=== PATIENT | male | born 1990 | race Caucasian/White ===

== ENCOUNTER 2017-07-28 16:32 | Emergency (ER) | payer OTHER ==
[~2017-07-28] VITALS: Ht 182.9 cm; Wt 90.0 kg
[~2017-07-28 16:32] MED LIST: CIPR500T4 PO
[2017-07-28 16:36] VITALS: BP 137/95; PULSE 99; RESP 17; TEMP 98.4; O2SAT 100
[2017-07-28] MEDS ORDERED: HYDROmorphone HCL PF 1 MG/ML VIAL IM ONE (17:00)
--- NOTE | 2017-07-28 17:06 | PD ---
HPI Chief Complaint: Fall Time Seen by Provider: 16:54 Travel History International Travel<30 days: No Contact w/Intl Traveler<30days: No Traveled to known affect area: No History of Present Illness HPI 27-year-old male here for evaluation of head injury after a mechanical slip and fall while in the shower after working out at the gym today at around 3:30 PM. Patient is unsure whether he lost consciousness or not. He sustained a laceration to his right temporal scalp/right forehead. He now complains of severe head pain, neck pain, and mild right wrist pain. He denies any other injuries. He is feeling lightheaded and somewhat confused, and has some blurry vision in his right eye. No paresthesias or motor deficits. He believes his last tetanus was 3 years ago. ON LICENSE OF [facility] Past Medical History Diminished Hearing: No Hepatitis: Yes (c) Social History Alcohol Use: No Tobacco Use: Yes Substance Use: No Allergies-Medications (Allergen,Severity, Reaction): Coded Allergies: amoxicillin (Unverified Allergy, Unknown, 06/07/17) Reported Meds & Prescriptions Reported Meds & Active Scripts Active Cipro (Ciprofloxacin HCl) 500 Mg Tab 500 Mg PO BID Review of Systems Except as stated in HPI: all other systems reviewed are Neg Physical Exam Narrative GENERAL: Well-developed, well-nourished, awake, alert, GCS 15, no apparent distress. SKIN: Focused skin assessment warm/dry. Laceration over the right forehead extending to right temporal region that is approximately 6 cm in length, moderate depth, mild venous oozing, no visible contaminants. HEAD: Skin exam as above. No scalp hematoma. Normocephalic. EYES: Pupils equal and round. No scleral icterus. No injection or drainage. ENT: Mucous membranes pink and moist. NECK: Trachea midline. No JVD. Moderate midline cervical spine tenderness without step-off. CARDIOVASCULAR: Regular rate and rhythm. Distal pulses brisk and equal bilaterally. RESPIRATORY: No accessory muscle use. Clear to auscultation. Breath sounds equal bilaterally. GASTROINTESTINAL: Abdomen soft, non-tender, nondistended. MUSCULOSKELETAL: No obvious deformities. No clubbing. No cyanosis. No edema. Right wrist without deformity, with normal range of motion, with mild tenderness. NEUROLOGICAL: Awake and alert. No obvious cranial nerve deficits. Motor grossly within normal limits. Normal speech. PSYCHIATRIC: Appropriate mood and affect; insight and judgment normal. Data Data Last Documented VS Vital Signs Date Time Temp Pulse Resp B/P (MAP) Pulse Ox O2 Delivery O2 Flow Rate FiO2 07/28/17 16:36 98.4 99 17 137/95 (109) [address] Brain W/O Iv Contrast(Rout) (07/28/17 ) Ct Cerv Spine W/O Contrast (07/28/17 ) Wrist, Complete ([id number]) (07/28/17 ) Hydromorphone Pf Inj (Dilaudid Pf Inj) (07/28/17 17:00) Lidocai-Epi 2%-1:100,000 Inj (Xylocaine- (07/28/17 18:00) Lidocai-Epi 2%-1:100,000 Inj (Xylocaine- (07/28/17 18:00) MDM Medical Decision Making Medical Screen Exam Complete: Yes Emergency Medical Condition: Yes Differential Diagnosis Head injury, concussion, intracranial hemorrhage, scalp laceration, cervical spine injury, wrist fracture versus sprain Narrative Course Vital signs reviewed. CT head: Negative noncontrast head CT. CT cervical spine: Negative trauma CT. Right wrist x-ray: Negative trauma exam. Right forehead laceration repaired by me. See procedure note. Patient was made aware of all findings. He is resting comfortably. Suture removal in 5 days. He was informed on when to return to the emergency Department sooner. He verbalizes understanding and agreement with plan. Procedures Procedure Narrative LACERATION LOCATION: Right forehead LENGTH: 6 cm NUMBER OF STITCHES/ANSELMO: 12 5-0 simple interrupted prolene sutures. REPAIR: The area of the laceration was prepped with Betadine and sterilely draped. The laceration was infiltrated with Receive cc of 2% lidocaine with epinephrine. The wound was copiously irrigated and explored without evidence of foreign body, tendon injury or neurovascular injury. The wound was closed using 12 5-0 simple interrupted prolene sutures. This was a single layer repair. A sterile dressing was applied. The patient was advised to keep the dressing clean and dry. Patient tolerated the procedure well. Diagnosis Primary Impression: Forehead laceration Qualified Codes: S01.81XA - Laceration without foreign body of other part of head, initial encounter Additional Impressions: Fall Qualified Codes: W19.XXXA - Unspecified fall, initial encounter Head injury Qualified Codes: S09.90XA - Unspecified injury of head, initial encounter Referrals: [facility] Additional Instructions: Have sutures removed in 5 days. Return to the Emergency Department sooner for worsening symptoms or any other concerns as discussed. Disposition: 01 DISCHARGE HOME Condition: Stable Jose Angel Meza MD Jul 28, 2017 17:06
--- NOTE | 2017-07-28 17:33 | RADRPT ---
EXAM DATE/TIME: 07/28/2017 17:12 [facility] COMPARISON: No previous studies available for comparison. INDICATIONS : Right anterior wrist pain after slipping coming out of shower. MEDICAL HISTORY : None. SURGICAL HISTORY : None. ENCOUNTER: Initial ACUITY: 1 day PAIN SCORE: 5/10 LOCATION: Right wrist FINDINGS: Three view examination of the right wrist demonstrates no soft tissue swelling, dislocation, or fract ure. The carpal bones are in normal alignment. The joint spaces are maintained. Bony mineralizatio n is normal. CONCLUSION: Negative trauma exam. Huey Torres MD on July 28, 2017 at 17:31 Board Certified Radiologist. This report was verified electronically.
[2017-07-28] MEDS ORDERED: LIDOCAINE 1%/EPINEPHrine 1:100,000 SOLN 20 ML VIAL INFIL ONE (17:45)
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
[2017-07-28] MEDS ORDERED: LIDOCAINE 2%/EPINEPHrine 1:100,000 30ML MDV INFIL ONE (18:00)
[2017-07-28] MEDS ORDERED: LIDOCAINE 2%/EPINEPHrine 1:100,000 20ML MDV INFIL ONE (18:00)
[2017-07-28] MEDS ORDERED: oxyCODONE/ACETAMINOPHEN 5 MG/325 MG TAB PO ONE (18:45)
== END 2017-07-28 19:15 | disposition home or self-care (01) ==
LOC: NEPD 16:32
DX: S01.81XA Laceration without foreign body of other part of head, initial encounter (principal); S09.90XA Unspecified injury of head, initial encounter; M25.531 Pain in right wrist; M54.2 Cervicalgia; H53.8 Other visual disturbances; W18.2XXA Fall in (into) shower or empty bathtub, initial encounter; Y93.E1 Activity, personal bathing and showering; Y92.39 Other specified sports and athletic area as the place of occurrence of the external cause; Z72.0 Tobacco use
CPT/HCPCS: 12014; 70450; 72125; 73110; 96372; 99285; J1170

== ENCOUNTER 2017-08-02 17:39 | Emergency (ER) | payer SELFPAY ==
[~2017-08-02] VITALS: Ht 180.3 cm; Wt 87.0 kg
[2017-08-02 17:41] VITALS: BP 158/81; PULSE 90; RESP 12; TEMP 98.8; O2SAT 96
--- NOTE | 2017-08-02 17:46 | PD ---
Physical Exam Date Seen by Provider: Aug 02, 2017 Time Seen by Provider: 17:45 Narrative 27 yo male here for evaluation of suture removal. Had an injury to head about a week ago. Sutures done here. Here to get them removed. Since he has been having pain to head and complains of headache 05/02. Vitals are stable in triage. Awaiting bed placement. Data Data Last Documented VS Vital Signs Date Time Temp Pulse Resp B/P (MAP) Pulse Ox O2 Delivery O2 Flow Rate FiO2 08/02/17 17:41 98.8 90 12 158/81 (106) 96 Room Air [facility] Medical Record Reviewed: Yes Supervised Visit with MURTAZA: Miguel Varela Aug 02, 2017 17:46
[2017-08-02] MEDS ORDERED: ROBA750T PO (20:04)
[2017-08-02] MEDS ORDERED: DICL75TA PO (20:04)
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
== END 2017-08-02 20:20 | disposition home or self-care (01) ==
LOC: NEPK 17:39
DX: S01.81XD Laceration without foreign body of other part of head, subsequent encounter (principal); W01.0XXD Fall on same level from slipping, tripping and stumbling without subsequent striking against object, subsequent encounter; R11.2 Nausea with vomiting, unspecified; M54.41 Lumbago with sciatica, right side; G89.29 Other chronic pain; Z48.02 Encounter for removal of sutures
CPT/HCPCS: 99284

== ENCOUNTER 2018-03-07 00:07 | Emergency (ER) | payer SELFPAY ==
[~2018-03-07] VITALS: Ht 180.3 cm; Wt 75.0 kg
[~2018-03-07 00:07] MED LIST changes: +DICL75TA PO; +ROBA750T PO
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
[2018-03-07 00:26] VITALS: BP 147/99; PULSE 92; RESP 18; TEMP 98.2; O2SAT 97
[2018-03-07 01:00] LABS: AUTOMATED NEUTROPHIL # 6.3 TH/MM3 (1.8-7.7); BASOPHIL # 0.1 TH/MM3 (0-0.2); BASOPHIL % 0.7 % (0.0-2.0); EOSINOPHIL # 0.1 TH/MM3 (0-0.4); EOSINOPHIL % 0.8 % (0.0-4.0); HEMATOCRIT 44.6 % (39.0-51.0); HEMOGLOBIN 15.4 GM/DL (13.0-17.0); LYMPH % 28.1 % (9.0-44.0); LYMPHOCYTE # 2.8 TH/MM3 (1.0-4.8); MEAN CELL VOLUME 93.3 FL (80.0-100.0); MEAN CORPUSCULAR HEMOGLOBIN 32.1 PG (27.0-34.0); MEAN CORPUSCULAR HGB CONC 34.4 % (32.0-36.0); MEAN PLATELET VOLUME 7.1 FL (7.0-11.0); MONO % 8.4 % (0.0-8.0); MONOCYTE # 0.9 TH/MM3 (0-0.9); PLATELET COUNT 253 TH/MM3 (150-450); RED BLOOD COUNT 4.78 MIL/MM3 (4.50-5.90); RED CELL DISTRIBUTION WIDTH 13.1 % (11.6-17.2); WHITE BLOOD COUNT 10.1 TH/MM3 (4.0-11.0)
[2018-03-07 01:16] LABS: BICARBONATE 32.3 MEQ/L (21.0-32.0); BLOOD UREA NITROGEN 25 MG/DL (7-18); CALCIUM 9.1 MG/DL (8.5-10.1); CHLORIDE 101 MEQ/L (98-107); CREATININE 1.25 MG/DL (0.60-1.30); GLOMERULAR FILTRATION RATE 68 ML/MIN (>89); GLUCOSE,RANDOM 69 MG/DL (74-106); SODIUM (NA) 139 MEQ/L (136-145)
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
[2018-03-07] MEDS ORDERED: DICL75TA PO (02:05)
[2018-03-07] MEDS ORDERED: CEPH-460 PO (02:06)
[2018-03-07] MEDS ORDERED: KETOROLAC TROMETHAMINE 30 MG/ML (IVP) VIAL IV PUSH ONE (02:15)
== END 2018-03-07 02:43 | disposition home or self-care (01) ==
LOC: NEPD 00:07
DX: S61.412A Laceration without foreign body of left hand, initial encounter (principal); X99.8XXA Assault by other sharp object, initial encounter; Z72.0 Tobacco use
CPT/HCPCS: 12002; 73130; 80048; 80307; 85025; 96365; 96375; 99284; J0690; J1885; L3808

== ENCOUNTER → 2018-03-13 | Day surgery (SDC) | payer SELFPAY ==
[~2018-03-13] VITALS: Ht 180.3 cm; Wt 75.0 kg
[~2018-03-13] MED LIST changes: +ACETAMINOPHEN/HYDROcodone 325 MG/5 MG TAB ONE; +BUPIVACAINE/EPINEPHRINE 0.75% PF 30 ML VIAL ONE; +CEPH-460 PO; +CHLORHEXIDINE GLUCONATE 2 % 1 PACK (2 CLOTHS) TOPICAL PRN; -CIPR500T4 PO; +CIPROFLOXACIN/DEXT 400 MG/200 ML IV SCH; +DEXAMETHASONE SOD PHOS 4 MG/ML VIAL ONE; +HYDROmorphone HCL PF 2 MG/ML VIAL ONE; +LACTATED RINGER'S 1000 ML IV PRN; +METOPROLOL TARTRATE 25 MG TAB PO PRN; +MORPHINE SULFATE 8 MG/ML INJ ONE; +MUPIROCIN 2% OINT 22 GM TUBE ONE; +NALO1SPR NASAL; +POVIDONE IODINE 5% (ANTISEPSIS KIT) 4 APPLICATIONS EACH NARE PRN; +PROMETHAZINE INJ 25 MG/ML VIAL ONE; -ROBA750T PO; +SODIUM CHLORID 0.9% 500 ML IV PRN
[2018-03-13] MEDS: FAMOTIDINE 20 MG/2 ML VIAL ONE ×2 (11:43→13:43)
[2018-03-13] MEDS: MIDAZOLAM HCL 2 MG/2 ML VIAL ONE ×2 (11:44→13:44)
[2018-03-13 16:55] VITALS: PULSE 114
[2018-03-13 18:15] VITALS: BP 143/76; PULSE 86; RESP 16; TEMP 98.2; O2SAT 100
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
== END | disposition home or self-care (01) ==
LOC: PHSDC 10:44
PROVIDERS: ATTEND Student in an Organized Health Care Education/Training Program
DX: S61.012A Laceration without foreign body of left thumb without damage to nail, initial encounter (principal); S66.022A Laceration of long flexor muscle, fascia and tendon of left thumb at wrist and hand level, initial encounter; S64.32XA Injury of digital nerve of left thumb, initial encounter; X99.9XXA Assault by unspecified sharp object, initial encounter; M54.9 Dorsalgia, unspecified; G89.29 Other chronic pain; B19.20 Unspecified viral hepatitis C without hepatic coma
CPT/HCPCS: 01810; 26350; 64910; C9352; J0744; J1100; J1170; J2250; J2270; J2550; J3010; J7120

== ENCOUNTER 2018-03-19 23:00 | Emergency (ER) | payer SELFPAY ==
[~2018-03-19] VITALS: Ht 175.3 cm; Wt 72.7 kg
[~2018-03-19 23:00] MED LIST changes: -ACETAMINOPHEN/HYDROcodone 325 MG/5 MG TAB ONE; -BUPIVACAINE/EPINEPHRINE 0.75% PF 30 ML VIAL ONE; -CHLORHEXIDINE GLUCONATE 2 % 1 PACK (2 CLOTHS) TOPICAL PRN; -CIPROFLOXACIN/DEXT 400 MG/200 ML IV SCH; -DEXAMETHASONE SOD PHOS 4 MG/ML VIAL ONE; -HYDROmorphone HCL PF 2 MG/ML VIAL ONE; -LACTATED RINGER'S 1000 ML IV PRN; -METOPROLOL TARTRATE 25 MG TAB PO PRN; -MORPHINE SULFATE 8 MG/ML INJ ONE; -MUPIROCIN 2% OINT 22 GM TUBE ONE; -NALO1SPR NASAL; -POVIDONE IODINE 5% (ANTISEPSIS KIT) 4 APPLICATIONS EACH NARE PRN; -PROMETHAZINE INJ 25 MG/ML VIAL ONE; -SODIUM CHLORID 0.9% 500 ML IV PRN
[2018-03-19 23:05] VITALS: BP 118/87; PULSE 87; RESP 18; TEMP 98.7; O2SAT 97
[2018-03-19] MEDS ORDERED: SODIUM CHLOR 0.9% 1000 ML INJ 1,000 ML IV ONE (23:30)
[2018-03-19 23:49] LABS: AUTOMATED NEUTROPHIL # 6.9 TH/MM3 (1.8-7.7); BASOPHIL % 0.4 % (0.0-2.0); HEMATOCRIT 36.8 % (39.0-51.0); HEMOGLOBIN 13.1 GM/DL (13.0-17.0); LYMPH % 18.3 % (9.0-44.0); LYMPHOCYTE # 1.7 TH/MM3 (1.0-4.8); MEAN CELL VOLUME 92.2 FL (80.0-100.0); MEAN CORPUSCULAR HEMOGLOBIN 32.8 PG (27.0-34.0); MEAN CORPUSCULAR HGB CONC 35.5 % (32.0-36.0); MEAN PLATELET VOLUME 7.2 FL (7.0-11.0); MONO % 8.3 % (0.0-8.0); MONOCYTE # 0.8 TH/MM3 (0-0.9); PLATELET COUNT 207 TH/MM3 (150-450); RED CELL DISTRIBUTION WIDTH 12.9 % (11.6-17.2); WHITE BLOOD COUNT 9.4 TH/MM3 (4.0-11.0)
[2018-03-19 23:51] LABS: INTERNATIONAL NORMALIZED RATIO 1.4 RATIO
[2018-03-19 23:53] LABS: ACETAMINOPHEN 3.5 MCG/ML (10.0-30.0); ALBUMIN 3.8 GM/DL (3.4-5.0); ALT (GPT) 70 U/L (12-78); AST (GOT) 61 U/L (15-37); BLOOD UREA NITROGEN 27 MG/DL (7-18); CHLORIDE 101 MEQ/L (98-107); CREATININE 1.11 MG/DL (0.60-1.30); GLOMERULAR FILTRATION RATE 78 ML/MIN (>89); GLUCOSE,RANDOM 121 MG/DL (74-106); MAGNESIUM 2.2 MG/DL (1.5-2.5); SODIUM (NA) 139 MEQ/L (136-145)
[2018-03-19 23:56] LABS: ALKALINE PHOSPHATASE 68 U/L (45-117); TOTAL BILIRUBIN ADULT 0.4 MG/DL (0.2-1.0); TOTAL PROTEIN 7.2 GM/DL (6.4-8.2)
[2018-03-20] MEDS ORDERED: ceFAZolin 2 GM PREMIX 50 ML IV ONE (00:15)
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
[2018-03-20 01:03] VITALS: BP 117/67; PULSE 75; O2SAT 96
[2018-03-20 01:15] VITALS: O2SAT 97
[2018-03-20] MEDS ORDERED: CEPH-460 PO (02:26)
[2018-03-20] MEDS ORDERED: NALO1SPR NASAL (02:26)
--- NOTE | 2018-03-20 08:06 | EKG ---
Date Performed: 03/19/2018 Time Performed: 23:11:17 PTAGE: 27 years EKG: Sinus rhythm NORMAL ECG NO PREVIOUS TRACING DOCTOR: Caden Clayton Interpretating Date/Time 03/20/2018 08:04:07
== END 2018-03-20 03:23 | disposition home or self-care (01) ==
LOC: NEPE 23:00
DX: F19.10 Other psychoactive substance abuse, uncomplicated (principal); B19.20 Unspecified viral hepatitis C without hepatic coma; S69.92XD Unspecified injury of left wrist, hand and finger(s), subsequent encounter; W27.2XXD Contact with scissors, subsequent encounter; Z72.0 Tobacco use; Z79.899 Other long term (current) drug therapy
CPT/HCPCS: 80053; 80307; 83690; 83735; 85025; 85610; 85730; 93005; 96361; 96374; 99284; J0690; J7030; L3808

== ENCOUNTER 2018-04-09 16:35 | Emergency (ER) | payer SELFPAY ==
[~2018-04-09] VITALS: Ht 180.3 cm; Wt 80.0 kg
[~2018-04-09 16:35] MED LIST changes: +NALO1SPR NASAL
[2018-04-09 16:43] VITALS: BP 138/79; PULSE 96; RESP 18; TEMP 98.4; O2SAT 97
--- NOTE | 2018-04-09 16:46 | PD ---
HPI Chief Complaint: OD/ Ingestion Time Seen by Provider: 16:41 Travel History International Travel<30 days: No Contact w/Intl Traveler<30days: No Traveled to known affect area: No History of Present Illness HPI The patient is a 28-year-old male who presents to the emergency department via EMS after heroin ingestion. The patient states he used heroin intravenously earlier today, apparently was found by all roommate unresponsive with poor respiratory effort. EMS arrived and administered the patient 0.4 mg of Narcan intravenously. The patient then became awake and alert. The patient does have a history of IV drug abuse, states he started using heroin at the age of 15 or 16. He does note one previous overdose attempt which resulted in an emergency department visit. He denies any alcohol use. The patient does state he has been up for the last 3 days and is tired. He denies any chest pain, shortness of breath, nausea, vomiting, or abdominal pain. Symptoms are moderate. PFSH Past Medical History Diminished Hearing: No Hepatitis: Yes (C) Psychiatric: Yes (ANXIETY) Past Surgical History AICD: No Body Medical Devices: RODS BACK Joint Replacement: No Pacemaker: No Social History Alcohol Use: Yes Tobacco Use: Yes Substance Use: Yes (MARIJUANA OCC, subutex shoot, percoocet abuse) Allergies-Medications (Allergen,Severity, Reaction): Coded Allergies: amoxicillin (Unverified Allergy, Unknown, 04/09/18) Reported Meds & Prescriptions Reported Meds & Active Scripts Active No Active Prescriptions or Reported Medications Review of Systems Except as stated in HPI: all other systems reviewed are Neg General / Constitutional: No: Fever Cardiovascular: No: Chest Pain or Discomfort Respiratory: No: Shortness of Breath Gastrointestinal: No: Nausea, Vomiting, Abdominal Pain Neurologic: No: Headache Psychiatric: Positive: Substance Abuse Physical Exam Narrative GENERAL: Awake, alert, pleasant 28-year-old male who appears his stated age and is in no acute respiratory distress. SKIN: Focused skin assessment warm/dry. Multiple tattoos noted. HEAD: Atraumatic. Normocephalic. EYES: Pupils equal and round. 2 mm bilateral. ENT: No nasal bleeding or discharge. Mucous membranes pink and moist. NECK: Trachea midline. No JVD. CARDIOVASCULAR: Regular rate and rhythm. No murmur appreciated. RESPIRATORY: No accessory muscle use. Clear to auscultation. Breath sounds equal bilaterally. GASTROINTESTINAL: Abdomen soft, non-tender, nondistended. MUSCULOSKELETAL: Old appearing lacerations to the volar aspect of the left hand. NEUROLOGICAL: Awake and alert. No obvious cranial nerve deficits. Motor grossly within normal limits. Normal speech. Nonfocal. PSYCHIATRIC: Appropriate mood and affect; insight and judgment normal. Data Data Last Documented VS Vital Signs Date Time Temp Pulse Resp B/P (MAP) Pulse Ox O2 Delivery O2 Flow Rate FiO2 04/09/18 22:39 04/09/18 20:00 65 16 96 Room Air 04/09/18 16:43 98.4 Orders Orders Iv Access Insert/Monitor (04/09/18 16:41) Ecg Monitoring (04/09/18 16:41) Oximetry (04/09/18 16:41) MDM Medical Decision Making Medical Screen Exam Complete: Yes Emergency Medical Condition: Yes Medical Record Reviewed: Yes Differential Diagnosis Differential diagnosis includes heroin overdose, opiate overdose, hypoxia, aspiration, polysubstance abuse. Narrative Course IV was established and the patient was placed on cardiac telemetry monitoring and continuous pulse oximetry monitoring. The patient was monitored in the emergency department for any hypoxia or respiratory depression. The patient had no evidence of hypoxia, was resting comfortably, no further doses of Narcan needed. Patient was observed for 4 hours, vital signs are stable, the patient was discharged. Diagnosis Primary Impression: Accidental heroin overdose Qualified Codes: T40.1X1A - Poisoning by heroin, accidental (unintentional), initial encounter Patient Instructions: General Instructions Additional Instructions: Decrease illicit drug use. Follow-up with her primary physician. Return if symptoms worsen or progress. Scripts No Active Prescriptions or Reported Meds Disposition: 01 DISCHARGE HOME Condition: Stable Flavio Salcido MD Apr 09, 2018 16:46
[2018-04-09 18:57] VITALS: BP 126/91; PULSE 55; RESP 14; O2SAT 98
[2018-04-09 20:00] VITALS: BP 124/77; PULSE 65; RESP 16; O2SAT 96
== END 2018-04-09 22:41 | disposition home or self-care (01) ==
LOC: NEPC 16:35
DX: T40.1X1A Poisoning by heroin, accidental (unintentional), initial encounter (principal); F11.10 Opioid abuse, uncomplicated; F41.9 Anxiety disorder, unspecified; B19.20 Unspecified viral hepatitis C without hepatic coma; F12.90 Cannabis use, unspecified, uncomplicated; F19.90 Other psychoactive substance use, unspecified, uncomplicated
CPT/HCPCS: 99283